=== PATIENT | female | born 1950 | race Caucasian/White ===

== ENCOUNTER 2020-10-04 12:53 | Emergency (ER) | payer MEDICARE ==
[~2020-10-04 12:53] MED LIST: ALBUTEROL2.5 MG/3 M INH; ALLEGRA ALLERG180 MG PO; ALPRAZOLAM0.5 MG PO; ALTACE CAP 5MG5 MG PO; ANTIVERT 25MG T25 MG PO; ARICEPT10 MG PO; BREO ELLIPTA 11 EACH INH; BUSPIRONE HCL15 MG PO; CYMBALTA 30 MG30 MG PO; CYMBALTA60 MG PO; DOXYCYCLINE HY100 MG PO; FLEXERIL 10 MG10 MG PO; HYDROCHLOROTH12.5 MG PO; HYDROXYZINE HCL25 MG PO; KEFLEX500 MG PO; LEVOTHYROXINE112 MC1 PO; LORTAB 5-325 M1 EACH PO; MELOXICAM7.5 MG PO; MOBIC15 MG PO; NEBULIZER UNIT; NEURONTIN600 MG PO; NORCO 10-325 T1 EACH PO; NORVASC5 MG PO; OMNICEF 300 MG300 MG PO; PLAVIX 75 MG TA75 MG PO; POLYMYXIN B-TMP10 ML OP; PREDNISONE20 MG PO; PROTONIX 40 MG40 M1 PO; QUETIAPINE FUM200 MG PO; TENORMIN 50 MG50 MG PO; TESSALON PERLE100 MG PO; ZOCOR20 MG PO
[2020-10-04 13:44] LABS: HEMOGLOBIN 9.2 gm/dl (12.3-15.3); RED BLOOD COUNT 3.7 M/UL (4.00-5.10)
[2020-10-04 14:16] LABS: BUN/CREATININE RATIO 17 (0-10)
== END 2020-10-04 16:32 | disposition left against medical advice (07) ==
LOC: ER1 12:53 → CDU 16:15 → ER1 16:15 → CDU 16:32
PROVIDERS: Family Medicine
DX: I95.9 Hypotension, unspecified (principal); I10 Essential (primary) hypertension; F32.9 Major depressive disorder, single episode, unspecified; F41.9 Anxiety disorder, unspecified; Z20.822 Contact with and (suspected) exposure to COVID-19
CPT/HCPCS: 71045; 73610; 73630; 80053; 82550; 82553; 83874; 84484; 85025; 93005; 99285; U0002